=== PATIENT | female | born 1955 | race Hispanic/Latino ===

== ENCOUNTER 2017-06-12 14:14 | Emergency (ER) | payer OTHER ==
[2017-06-12 15:13] VITALS: BP 126/83; PULSE 61; TEMP 98.1; BMI 36.3
--- NOTE | 2017-06-12 15:24 | ED PDOC ---
Arrival/HPI - General Chief Complaint: Finger,Hand,&Wrist Time Seen by Provider: 06/12/17 15:01 Historian: Patient - History of Present Illness Narrative History of Present Illness (Text): 06/12/17 15:23 This 62 yo female presents to this ED c/o right 3rd finger tip pain x 2 days. She stated her finger was jammed with couch. Past Medical History - Tetanus Immunization Tetanus Immunization: Unknown - Reproductive Menopause: Yes - Cardiac Hx Hypertension: Yes - Pulmonary Hx Respiratory Disorders: Yes Hx Chronic Obstructive Pulmonary Disease (COPD): Yes Hx Emphysema: Yes - Neurological Hx Neurological Disorder: No - HEENT Hx HEENT Disorder: No - Renal Hx Renal Disorder: No - Endocrine/Metabolic Hx Endocrine Disorders: No Other/Comment: magdalena disease no longer on meds - Hematological/Oncological Hx Blood Disorders: Yes Hx Shingles: Yes - Integumentary Hx Dermatological Disorder: No - Musculoskeletal/Rheumatological Hx Arthritis: Yes - Gastrointestinal Hx Gastrointestinal Disorders: Yes (RECTAL BLEED) - Genitourinary/Gynecological Hx Genitourinary Disorders: No - Psychiatric Hx Psychophysiologic Disorder: Yes Hx Anxiety: Yes Hx Depression: Yes Hx Emotional Abuse: No Hx Panic Disorder: Yes Hx Physical Abuse: No Hx Substance Use: No - Surgical History Hx Hysterectomy: Yes Other/Comment: anal fistula repair - Anesthesia Hx Anesthesia: Yes Hx Anesthesia Reactions: No Hx Malignant Hyperthermia: No - Suicidal Assessment Feels Threatened In Home Enviroment: No Family/Social History Smoking Status: Former Smoker Hx Alcohol Use: No Hx Substance Use: No Hx Substance Use Treatment: No Allergies/Home Meds Allergies/Adverse Reactions: Allergies ciprofloxacin [From Cipro] Allergy (Verified 06/12/17 15:13) SWELLING ciprofloxacin HCl [From Cipro] Allergy (Verified 06/12/17 15:13) SWELLING Home Medications: Home Meds Medication Instructions Recorded Confirmed LORazepam [Ativan] 1 mg PO TID 04/24/16 06/12/17 Metoprolol Succinate 25 mg PO BID 04/24/16 06/12/17 Physical Exam Vital Signs Temp Pulse Resp BP Pulse Ox 06/12/17 15:14 98.1 F 61 16 126/83 97 06/12/17 15:12 98.1 F 61 16 126/83 97 Medical Decision Making ED Course and Treatment: 06/12/17 16:03 Th Re-evaluation Time: 16:03 Reassessment Condition: Re-examined, Improved - RAD Interpretation Narrative RAD Interpretations (Text): 06/12/17 16:03 finger x-rays x-rays Radiology Orders: 06/12/17 15:22 HAND RIGHT 3RD DIGIT (FINGER) [RAD] Stat Disposition/Present on Arrival - Present on Arrival Any Indicators Present on Arrival: No History of DVT/PE: No History of Uncontrolled Diabetes: No Urinary Catheter: No History of Decub. Ulcer: No History Surgical Site Infection Following: None - Disposition Have Diagnosis and Disposition been Completed?: Yes Diagnosis: Subungual hematoma of digit of hand Disposition: HOME/ ROUTINE Disposition Time: 16:03 Patient Plan: Discharge Condition: GOOD Discharge Instructions (ExitCare): Subungual Hematoma (ED) Additional Instructions: Call private doctor for follow up visit in 1-2 days. Take medication as instructed. return to emergency if symptoms worsen. clean wound with soap and water daily
[2017-06-12 16:08] VITALS: RESP 18; O2SAT 99
--- NOTE | 2017-06-12 16:32 | RAD ---
PROCEDURE: Right Hand Radiographs. HISTORY: pain COMPARISON: None. FINDINGS: BONES: Normal. No fracture. JOINTS: Normal. No osteoarthritic changes. SOFT TISSUES: Normal. OTHER FINDINGS: None. IMPRESSION: Normal right hand radiographs.
== END 2017-06-12 16:08 | disposition home or self-care (01) ==
LOC: ED 14:14
DX: S60.031A Contusion of right middle finger without damage to nail, initial encounter (principal); W23.0XXA Caught, crushed, jammed, or pinched between moving objects, initial encounter

== ENCOUNTER 2017-07-24 13:40 | Inpatient (IN) | payer MEDICAID ==
[2017-07-24 13:55] VITALS: BMI 36.6
--- NOTE | 2017-07-24 15:00 | ED PDOC ---
Arrival/HPI - General Historian: Patient - History of Present Illness Time/Duration: < week Quality: Aching Context: Home - General Chief Complaint: Trauma Time Seen by Provider: 07/24/17 14:45 - History of Present Illness Narrative History of Present Illness (Text): 07/24/17 14:45 This 62 yo female with pmh htn, COPD, thoracic aorta aneurysm, hypothyroidism, anxiety, presents to this ED c/o 2 episodes of syncope x 5 days. Patient stated that she was on standing position, when she found herself on the floor with a mild GRAYSON. Patient does not recall feeling dizzy prior syncope. Patient also had a second syncope x 2 days ago, again similar like 5 days ago without warning. Now, patient feels a mild GRAYSON, mid sternun chest pressure, RLQ abdominal pain, with back pain. Denies recent travel, recent procedure, leg swelling, vomiting, calf pain, diplopia, dysarthria, neck pain, or abnormal gait. (Mary Hayden) Past Medical History - Provider Review Nursing Documentation Reviewed: Yes - Infectious Disease Hx of Infectious Diseases: None - Tetanus Immunization Tetanus Immunization: Unknown - Cardiac Hx Cardiac Disorders: Yes Hx Hypertension: Yes Other/Comment: AAA - Pulmonary Hx Respiratory Disorders: Yes Hx Chronic Obstructive Pulmonary Disease (COPD): Yes Hx Emphysema: Yes - Neurological Hx Neurological Disorder: No - HEENT Hx HEENT Disorder: No - Renal Hx Renal Disorder: No - Endocrine/Metabolic Hx Endocrine Disorders: Yes Hx Hypothyroidism: Yes Other/Comment: magdalena disease no longer on meds - Hematological/Oncological Hx Blood Disorders: Yes Hx Shingles: Yes - Integumentary Hx Dermatological Disorder: No - Musculoskeletal/Rheumatological Hx Arthritis: Yes - Gastrointestinal Hx Gastrointestinal Disorders: Yes (RECTAL BLEED) - Genitourinary/Gynecological Hx Genitourinary Disorders: No - Psychiatric Hx Psychophysiologic Disorder: Yes Hx Anxiety: Yes Hx Depression: Yes Hx Emotional Abuse: No Hx Panic Disorder: Yes Hx Physical Abuse: No Hx Substance Use: No - Surgical History Hx Hysterectomy: Yes Other/Comment: anal fistula repair - Anesthesia Hx Anesthesia: Yes Hx Anesthesia Reactions: No Hx Malignant Hyperthermia: No - Suicidal Assessment Feels Threatened In Home Enviroment: No Family/Social History - Physician Review Nursing Documentation Reviewed: Yes Family/Social History: Other (non-contributory) Smoking Status: Former Smoker Hx Alcohol Use: No Hx Substance Use: No Hx Substance Use Treatment: No Allergies/Home Meds Allergies/Adverse Reactions: Allergies ciprofloxacin [From Cipro] Allergy (Verified 07/24/17 13:55) SWELLING ciprofloxacin HCl [From Cipro] Allergy (Verified 07/24/17 13:55) SWELLING Home Medications: Home Meds Medication Instructions Recorded Confirmed LORazepam [Ativan] 1 mg PO TID 04/24/16 07/24/17 Metoprolol Succinate 25 mg PO BID 04/24/16 07/24/17 Review of Systems - Review of Systems Constitutional: Normal. absent: Fatigue, Weight Change, Night Sweats Eyes: Normal ENT: Normal. absent: Sore Throat Respiratory: Normal. absent: SOB, Cough, Sputum, Wheezing Cardiovascular: Chest Pain, Syncope. absent: Palpitations, Edema, Calf Pain, SHEEHAN, Orthopnea Gastrointestinal: Abdominal Pain, Nausea. absent: Constipation, Diarrhea, Vomiting Genitourinary Female: Dysuria. absent: Frequency, Hematuria, Vaginal Bleeding, Vaginal Discharge Musculoskeletal: Back Pain. absent: Neck Pain, Joint Swelling, Myalgias Skin: Normal Neurological: Headache. absent: Dizziness, Focal Weakness, Gait Changes, Speech Changes, Facial Droop, Disequilibrium, Seizure Endocrine: Normal Hemo/Lymphatic: Normal Psychiatric: Normal Physical Exam Temperature: Afebrile Blood Pressure: Normal Pulse: Regular Respiratory Rate: Normal Appearance: Positive for: Well-Appearing, Non-Toxic, Comfortable Pain Distress: None Mental Status: Positive for: Alert and Oriented X 3 - Systems Exam Head: Present: Atraumatic, Normocephalic Pupils: Present: PERRL Extroacular Muscles: Present: EOMI Conjunctiva: Present: Normal Mouth: Present: Moist Mucous Membranes Neck: Present: Normal Range of Motion Respiratory/Chest: Present: Clear to Auscultation, Good Air Exchange. No: Respiratory Distress, Accessory Muscle Use Cardiovascular: Present: Regular Rate and Rhythm, Normal S1, S2. No: Murmurs Abdomen: Present: Normal Bowel Sounds. No: Tenderness, Distention, Peritoneal Signs, Rebound, Guarding Back: Present: Normal Inspection. No: CVA Tenderness, Midline Tenderness Upper Extremity: Present: Normal Inspection, Normal ROM, Neurovascularly Intact , Capillary Refill < 2s. No: Cyanosis, Edema Lower Extremity: Present: Normal Inspection, NORMAL PULSES, Normal ROM, Capillary Refill < 2 s. No: Edema Neurological: Present: GCS=15, CN II-XII Intact, Speech Normal, Motor Func Grossly Intact, Normal Sensory Function, Normal Cerebellar Funct, Gait Normal, Memory Normal Skin: Present: Warm, Dry, Normal Color. No: Rashes Psychiatric: Present: Alert, Oriented x 3, Normal Insight, Normal Concentration Vital Signs Temp Pulse Resp BP Pulse Ox 07/24/17 22:49 51 L 16 109/70 99 07/24/17 20:35 47 L 18 106/53 L 98 07/24/17 18:22 47 L 18 109/57 L 99 07/24/17 15:18 53 L 18 129/68 100 07/24/17 13:58 98.1 F 60 18 132/85 96 Medical Decision Making Re-evaluation Time: 20:15 Reassessment Condition: Re-examined, Improving,but remains with symptoms - Lab Interpretations I have reviewed the lab results: Yes Interpretation: No clinic. lab abnormalty - EKG Interpretation Interpreted by ED Physician: Yes (sinus bradycardia @ [address] changes) Comparison: No previous EKG avail. ED Course and Treatment: I was available for consultation during PA evaluation. The chart was reviewed by me, and I agree with disposition. The documented history was done by the physician weight inspector. The documented physical exam was done by the physician weight inspector. The documented procedures were done by the physician weight inspector. (Damon Ivey) 07/24/17 19:57 I speak with residential installer carmen who stated Dr. Alvarez is next. 07/24/17 19:[address] Alvarez who reviewed labs and c/o of syncope, abdominal pain He agrees with observation (Mary Hayden) - Lab Interpretations Lab Results: 07/24/17 15:30 07/24/17 15:30 Lab Results 07/24/17 15:30: Sodium 142, Chloride 106, Potassium 4.0, Carbon Dioxide 27, Anion Gap 13, BUN 11, Creatinine 0.8, Est GFR ( Amer) > 60, Est GFR (Non- Af Amer) > 60, Random Glucose 80, Calcium 9.6, Total Bilirubin 0.6, AST 22, ALT 22, Alkaline Phosphatase 52, Lactate Dehydrogenase 435, Total Creatine Kinase 90 , Troponin I < 0.01, NT-Pro-B Natriuret Pep 81.5, Total Protein 7.4, Albumin 4.2 , Globulin 3.2, Albumin/Globulin Ratio 1.3 07/24/17 15:30: pO2 42, VBG pH 7.30 L, VBG pCO2 59.0, VBG HCO3 29.0 H, VBG Total CO2 30.8 H, VBG O2 Sat (Calc) 84.2 H, VBG Base Excess 1.2, VBG Potassium 4.0, Sodium 140.0, Chloride 107.0, Glucose 82, Lactate 1.2, FiO2 21.0, Venous Blood Potassium 4.0 07/24/17 15:30: PT 10.7, INR 0.99, APTT 29.4 07/24/17 15:30: WBC 4.3 L, RBC 4.22, Hgb 13.4, Hct 38.3, MCV 90.8, MCH 31.8, MCHC 35.0, RDW 13.7, Plt Count 215, MPV 10.7, Gran % 59.2, Lymph % (Auto) 31.1, Lake % (Auto) 7.1 H, Eos % (Auto) 1.9, Baso % (Auto) 0.7, Gran # 2.52, Lymph # 1.3, Lake # 0.3, Eos # 0.1, Baso # 0.03 - RAD Interpretation Narrative RAD Interpretations (Text): 07/24/17 15:58 Accession No. : [id number] Patient Name / ID : GILBERTO ULLOA / [id number] Exam Date : 07/24/2017 15:02:31 ( Approved ) Study Comment : Sex / Age : F / 62Y Creator : Kaiden Salinas MD Dictator : Kaiden Salinas MD Production Zone Leader : Press Setter : Kaiden Salinas MD Approver2 : Report Date : 07/24/2017 15:29:33 My Comment : HISTORY: syncope COMPARISON: 03/03/2016 FINDINGS: LUNGS: No active pulmonary disease. PLEURA: No significant pleural effusion identified, no pneumothorax apparent. CARDIOVASCULAR: Normal. OSSEOUS STRUCTURES: No significant abnormalities. VISUALIZED UPPER ABDOMEN: Normal. OTHER FINDINGS: None. IMPRESSION: No active disease. 07/24/17 19:13 Accession No. : [id number] Patient Name / ID : GILBERTO ULLOA / [id number] Exam Date : 07/24/2017 18:35:59 ( Approved ) Study Comment : Sex / Age : F / 62Y Creator : Aura Gross MD Dictator : Production Zone Leader : Press Setter : Aura Gross MD Approver2 : Report Date : 07/24/2017 18:56:12 My Comment : PROCEDURE: CT HEAD WITHOUT CONTRAST. HISTORY: grayson COMPARISON: Noncontrast head CT performed 11/09/16 TECHNIQUE: Axial computed tomography images were obtained through the head/brain without intravenous contrast. Radiation dose: Total exam DLP = 774.23 mGy-cm. This CT exam was performed using one or more of the following dose reduction techniques: Automated exposure control, adjustment of the mA and/or kV according to patient size, and/or use of iterative reconstruction technique. FINDINGS: HEMORRHAGE: No intracranial hemorrhage. BRAIN: No mass effect or edema. The renae-white matter differentiation appears intact. Please note that MRI with diffusion imaging is more sensitive in the detection of acute ischemic event. VENTRICLES: No hydrocephalus. CALVARIUM: Unremarkable. PARANASAL SINUSES: Unremarkable as visualized. No significant inflammatory changes. MASTOID AIR CELLS: Unremarkable as visualized. No inflammatory changes. OTHER FINDINGS: None. IMPRESSION: No acute intracranial pathology identified. 07/24/17 23:02 [facility] Division of Radiology [address] [place] [address] Tel. no. Patient Name: LAILA MACIAS Pt. Address: [address] [place] [address] Rec #: [id number] [place] [address]: Mary Hayden PA-C Pt Order Location: [facility] : 1955 Female Age: 62 Order #: [id number] Reason for exam: RLQ abd. pain, chest and back pain Hx. aneurysm CT Scan ANGIOGRAPHY DISECTION PROTOCOL Exam Date: 07/24/17 This imaging exam was performed at [facility] EXAM: CT Angiography Chest Without and With Intravenous Contrast CLINICAL HISTORY: 62 years old, female; Pain; Abdominal pain and other: Rlq abd. Pain, chest and back pain HX. Aneurysm TECHNIQUE: Axial computed tomographic angiography images of the chest without and with intravenous contrast using pulmonary embolism protocol. All CT scans at this facility use one or more dose reduction techniques, viz.: automated exposure control; ma/kV adjustment per patient size (including targeted exams where dose is matched to indication; i.e. head); or iterative reconstruction technique. MIP reconstructed images were created and reviewed. Coronal and sagittal reformatted images were created and reviewed. CONTRAST: 150 mL of [id number] administered intravenously. COMPARISON: Prior images are not available for review. Correlation is made with a report dated 11/10/16 FINDINGS: Heart, aorta and Pulmonary arteries: Heart size is normal. There is no pericardial effusion. Ascending aorta is mildly dilated, 4 cm in diameter. There is tapering at the arch. There is perfusion of the arch vessels. There is no dissection. There are calcifications in the arch. There are no pulmonary emboli. Lungs and pleural spaces: Trachea and main bronchi are patent.There is no pneumothorax. There is no focal consolidation there is minimal dependent atelectasis. There is minimal scarring at the lung bases. There are no effusions. Mediastinum: Esophagus is unremarkable. There are shotty mediastinal nodes. There is no hilar adenopathy. Thyroid: Thyroid is unremarkable Bones/joints: There are degenerative changes in the osseus structures. Soft tissues: unremarkable Upper abdomen: Refer to following report for abdominal findings IMPRESSION: Mild dilatation of the ascending aorta, 4 cm maximal diameter, no dissection or pulmonary embolus, no focal pneumonia EXAM: CT Angiography Abdomen and Pelvis Without and With Intravenous Contrast EXAM DATE/TIME: 07/24/2017 2:46 PM CLINICAL HISTORY: 62 years old, female; Pain; Abdominal pain and other: Rlq abd. Pain, chest and back pain HX. Aneurysm TECHNIQUE: Axial computed tomographic angiography images of the abdomen and pelvis without and with intravenous contrast. All CT scans at this facility use one or more dose reduction techniques, viz.: automated exposure control; ma/kV adjustment per patient size (including targeted exams where dose is matched to indication; i.e. head); or iterative reconstruction technique. MIP reconstructed images were created and reviewed. Coronal and sagittal reformatted images were created and reviewed. CONTRAST: 150 mL of administered intravenously. COMPARISON: There are no prior studies for comparison. FINDINGS: Lower thorax: Refer to prior report for chest findings VASCULATURE: Aorta: Abdominal aorta is normal in course and caliber. There is perfusion of all major abdominal aortic branches. There is perfusion of the iliac arteries. There are atherosclerotic calcifications in the distal aorta and iliacs. Celiac trunk and mesenteric arteries: see above . Renal arteries: see above Iliac arteries: See above. ABDOMEN: Liver: unremarkable Gallbladder and bile ducts: unremarkable Pancreas: unremarkable Spleen: unremarkable Adrenals: unremarkable Kidneys and ureters: unremarkable Stomach and bowel: Stomach is almost empty. Rotation is normal. Small bowel is mildly distended with fluid and air. There is no obstruction. Terminal ileum is unremarkable. Visualized portion of the appendix is unremarkable.Colon is incompletely distended which limits evaluation. Appendix: See above PELVIS: Bladder: unremarkable Reproductive: Uterus is absent. There are no adnexal masses. ABDOMEN and PELVIS: Intraperitoneal space: There is no significant fluid.There is no free air. Bones/joints: There are degenerative changes in the spine. Disc space narrowing is greatest at L5/S1. Soft tissues: unremarkable Lymph nodes: There is no pathologic adenopathy. Other findings: There are calcified phleboliths. IMPRESSION: No abdominal aortic aneurysm or dissection; no acute solid visceral or bowel abnormality; degenerative osseous change Dictated By: Veronica Garcia MD, MD Dictated Date/Time: 07/24/172050 Signed By: Veronica Garcia MD Date Signed: 2050 Transcribed By: ROSA Transcribe Date/Time : 07/24/172050 (Mary Hayden) Radiology Orders: 07/24/17 14:46 ANGIOGRAPHY DISECTION PROTOCOL [CT] Stat CHEST PORTABLE [RAD] Stat 07/24/17 14:50 HEAD W/O CONTRAST [CT] Stat - Medication Orders Current Medication Orders: Acetaminophen (Tylenol 325mg Tab) 650 mg PO Q6H PRN PRN Reason: Pain, moderate (4-7) Cyclobenzaprine HCl (Flexeril) 5 mg PO Q8H [place]ILL Oxycodone/Acetaminophen (Percocet 2.5/325 Mg Tab) 1 tab PO Q6H PRN PRN Reason: Pain, severe (8-10) Discontinued Medications Iohexol (Omnipaque 350 150 Ml) Confirm Administered Dose 150 ml .ROUTE .STK-MED ONE Stop: 07/24/17 18:37 Ondansetron HCl (Zofran Inj) 4 mg IVP STAT STA Stop: 07/24/17 14:52 Last Admin: 07/24/17 18:17 Dose: 4 mg Disposition/Present on Arrival - Present on Arrival Any Indicators Present on Arrival: No History of DVT/PE: No History of Uncontrolled Diabetes: No Urinary Catheter: No History of Decub. Ulcer: No History Surgical Site Infection Following: None - Disposition Have Diagnosis and Disposition been Completed?: Yes Disposition Time: 20:16 Patient Plan: Admission - Disposition Diagnosis: Syncope and collapse Disposition: HOSPITALIZED Patient Problems: Current Active Problems Problem Status Onset Syncope and collapse Acute Condition: STABLE
--- NOTE | 2017-07-24 15:31 | RAD ---
HISTORY: syncope COMPARISON: 03/03/2016 FINDINGS: LUNGS: No active pulmonary disease. PLEURA: No significant pleural effusion identified, no pneumothorax apparent. CARDIOVASCULAR: Normal. OSSEOUS STRUCTURES: No significant abnormalities. VISUALIZED UPPER ABDOMEN: Normal. OTHER FINDINGS: None. IMPRESSION: No active disease.
[2017-07-24 16:04] LABS: BASO # 0.03 K/mm3 (0.0-2.0); BASO % 0.7 % (0.0-3.0); EOS # 0.1 (0.0-0.7); EOS % 1.9 % (1.5-5.0); GRAN # 2.52 (1.4-6.5); GRAN % 59.2 % (50.0-68.0); HEMATOCRIT 38.3 % (36.0-48.0); LYMPH # 1.3 (1.2-3.4); LYMPH % 31.1 % (22.0-35.0); MEAN CELL VOLUME 90.8 fl (80.0-105.0); MEAN CORPUSCULAR HEMOGLOBIN 31.8 pg (25.0-35.0); MEAN PLATELET VOLUME 10.7 fl (7.0-11.0); MONO # 0.3 (0.1-0.6); MONO % 7.1 % (1.0-6.0); RED CELL DISTRIBUTION WIDTH 13.7 % (11.5-14.5); VENOUS BLOOD GAS BASE EXCESS 1.2 mmol/L (0.0-2.0); WHITE BLOOD COUNT 4.3 10^3/ul (4.5-11.0)
[2017-07-24 16:14] LABS: ALB/GLOB RATIO 1.3 (1.1-1.8); ALKALINE PHOSPHATASE 52 U/L (38-126); ALT/SGPT 22 U/L (7-56); AST/SGOT 22 U/L (14-36); BILIRUBIN,TOTAL 0.6 mg/dL (0.2-1.3); BLOOD UREA NITROGEN 11 mg/dL (7-21); CALCIUM 9.6 mg/dL (8.4-10.5); CARBON DIOXIDE 27 mmol/L (21-33); CHLORIDE 106 mmol/L (98-107); GFR AFRICAN-AMERICAN > 60; GLUCOSE,RANDOM 80 mg/dL (70-110); SODIUM 142 mmol/L (132-148); TOTAL PROTEIN 7.4 g/dL (5.8-8.3)
[2017-07-24 16:19] LABS: INR 0.99 (0.93-1.08); PARTIAL THROMBOPLASTIN TIME 29.4 Seconds (23.7-30.8)
[2017-07-24 16:33] LABS: TROPONIN I < 0.01 ng/mL
--- NOTE | 2017-07-24 18:57 | CT ---
PROCEDURE: CT HEAD WITHOUT CONTRAST. HISTORY: henderson COMPARISON: Noncontrast head CT performed 11/09/16 TECHNIQUE: Axial computed tomography images were obtained through the head/brain without intravenous contrast. Radiation dose: Total exam DLP = 774.23 mGy-cm. This CT exam was performed using one or more of the following dose reduction techniques: Automated exposure control, adjustment of the mA and/or kV according to patient size, and/or use of iterative reconstruction technique. FINDINGS: HEMORRHAGE: No intracranial hemorrhage. BRAIN: No mass effect or edema. The renae-white matter differentiation appears intact. Please note that MRI with diffusion imaging is more sensitive in the detection of acute ischemic event. VENTRICLES: No hydrocephalus. CALVARIUM: Unremarkable. PARANASAL SINUSES: Unremarkable as visualized. No significant inflammatory changes. MASTOID AIR CELLS: Unremarkable as visualized. No inflammatory changes. OTHER FINDINGS: None. IMPRESSION: No acute intracranial pathology identified.
--- NOTE | 2017-07-24 20:52 | CT ---
EXAM: CT Angiography Chest Without and With Intravenous Contrast CLINICAL HISTORY: 62 years old, female; Pain; Abdominal pain and other: Rlq abd. Pain, chest and back pain HX. Aneurysm TECHNIQUE: Axial computed tomographic angiography images of the chest without and with intravenous contrast using pulmonary embolism protocol. All CT scans at this facility use one or more dose reduction techniques, viz.: automated exposure control; ma/kV adjustment per patient size (including targeted exams where dose is matched to indication; i.e. head); or iterative reconstruction technique. MIP reconstructed images were created and reviewed. Coronal and sagittal reformatted images were created and reviewed. CONTRAST: 150 mL of [id number] administered intravenously. COMPARISON: Prior images are not available for review. Correlation is made with a report dated 11/10/16 FINDINGS: Heart, aorta and Pulmonary arteries: Heart size is normal. There is no pericardial effusion. Ascending aorta is mildly dilated, 4 cm in diameter. There is tapering at the arch. There is perfusion of the arch vessels. There is no dissection. There are calcifications in the arch. There are no pulmonary emboli. Lungs and pleural spaces: Trachea and main bronchi are patent.There is no pneumothorax. There is no focal consolidation there is minimal dependent atelectasis. There is minimal scarring at the lung bases. There are no effusions. Mediastinum: Esophagus is unremarkable. There are shotty mediastinal nodes. There is no hilar adenopathy. Thyroid: Thyroid is unremarkable Bones/joints: There are degenerative changes in the osseus structures. Soft tissues: unremarkable Upper abdomen: Refer to following report for abdominal findings IMPRESSION: Mild dilatation of the ascending aorta, 4 cm maximal diameter, no dissection or pulmonary embolus, no focal pneumonia EXAM: CT Angiography Abdomen and Pelvis Without and With Intravenous Contrast EXAM DATE/TIME: 07/24/2017 2:46 PM CLINICAL HISTORY: 62 years old, female; Pain; Abdominal pain and other: Rlq abd. Pain, chest and back pain HX. Aneurysm TECHNIQUE: Axial computed tomographic angiography images of the abdomen and pelvis without and with intravenous contrast. All CT scans at this facility use one or more dose reduction techniques, viz.: automated exposure control; ma/kV adjustment per patient size (including targeted exams where dose is matched to indication; i.e. head); or iterative reconstruction technique. MIP reconstructed images were created and reviewed. Coronal and sagittal reformatted images were created and reviewed. CONTRAST: 150 mL of [id number] administered intravenously. COMPARISON: There are no prior studies for comparison. FINDINGS: Lower thorax: Refer to prior report for chest findings VASCULATURE: Aorta: Abdominal aorta is normal in course and caliber. There is perfusion of all major abdominal aortic branches. There is perfusion of the iliac arteries. There are atherosclerotic calcifications in the distal aorta and iliacs. Celiac trunk and mesenteric arteries: see above . Renal arteries: see above Iliac arteries: See above. ABDOMEN: Liver: unremarkable Gallbladder and bile ducts: unremarkable Pancreas: unremarkable Spleen: unremarkable Adrenals: unremarkable Kidneys and ureters: unremarkable Stomach and bowel: Stomach is almost empty. Rotation is normal. Small bowel is mildly distended with fluid and air. There is no obstruction. Terminal ileum is unremarkable. Visualized portion of the appendix is unremarkable.Colon is incompletely distended which limits evaluation. Appendix: See above PELVIS: Bladder: unremarkable Reproductive: Uterus is absent. There are no adnexal masses. ABDOMEN and PELVIS: Intraperitoneal space: There is no significant fluid.There is no free air. Bones/joints: There are degenerative changes in the spine. Disc space narrowing is greatest at L5/S1. Soft tissues: unremarkable Lymph nodes: There is no pathologic adenopathy. Other findings: There are calcified phleboliths. IMPRESSION: No abdominal aortic aneurysm or dissection; no acute solid visceral or bowel abnormality; degenerative osseous change
[2017-07-24] MEDS ORDERED: Oxycodone/Acetaminophen 2.5/325 mg Tab PO PRN (22:36)
--- NOTE | 2017-07-24 22:52 | CARD ---
APPROVED REPORT EKG Measurement Heart [id number] CT 160P51 [id number] <Conclusion> Sinus bradycardia with sinus arrhythmia Otherwise normal ECG
[2017-07-24 23:31] LABS: URINE BILIRUBIN NEGATIVE (NEGATIVE); URINE BLOOD NEGATIVE (NEGATIVE); URINE GLUCOSE (UA) NEGATIVE (NEGATIVE); URINE KETONE NEGATIVE (NEGATIVE); URINE LEUKOCYTE ESTERASE NEGATIVE Leu/uL (NEGATIVE); URINE PROTEIN TRACE mg/dL (<30 mg/dL); URINE UROBILINOGEN 0.2 E.U./dL (<1 E.U./dL)
[2017-07-24 23:35] LABS: URINE APPEARANCE CLEAR (CLEAR); URINE COLOR YELLOW (YELLOW)
[2017-07-24 23:54] LABS: URINE RBC 0 - 2 /hpf (0-2); URINE WBC 0 - 2 /hpf (0-6)
[2017-07-25 01:14] VITALS: RESP 20
--- NOTE | 2017-07-25 02:37 | CP.PCM.HP ---
<OTONIELNATALIE - Last Filed: 07/25/17 02:33> History of Present Illness - History of Present Illness History of Present Illness: Natalie Zepeda, PGY1, H&P for Dr. Alvarez: CC: Syncope x 2 episodes HPI: 62F with PMH peripheral neuropathy, ascending aortic aneursym, hasthimoto' s thryoiditis, tachy maureen arrhythmia, presents for syncopal episodes x2. Pt had first episode 6 days ago while she was standing on the kitchen doing dishes , and suddenly collapsed to ground. She denies any dizziness, cp, palpitations, weakness, diaphoresis, sob prior to the episode. Denies LOC, pt immediately got up, denies confusion/disorientation. Pt fell on her back and elbows, was in pain but was able to ambulate. The next episode of syncope occurred 4 days after, while pt was in the park and suddenly felt papitations, and she syncopized to the ground. However, pt again hit her back, and since the past few days, pt has felt worsening back pain, leading her to come to ED. Pt denies any cp, sob, weakness, weight changes, heat/cold intolerance, f/c/n/v, constipation, diarrhea. Pt does complain of some + ears buzzing, right eye floaters (that have returned - her previous admission few months ago was for right vitreous detachment). In ED, pt afebrile, nrml VS, trop negx1, CT head/ chest/abd/pelvis neg. Prev Hospi: 10/2016 at [facility] [place]reous detachment, f/u with oupt opthalmologist for 6 months PMH: ascending aortic aneurysm, Htn, magdalena's thyroiditis, COPD, tachy-maureen arrhythmia, dyslipidemia, panic attack, peripheral neuropathy. PSH: total hysterectomy, anal fistula repair 2016. FMH: sister from [place]. Mom at age of 78, had alzheimer and melanoma. Dad at age of 94, from renal failure. Social: former pack a day smoker, quit 2 yrs ago, smoked for 24 years. denies alcohol or illicit drug use. Allergy: cipro Home meds: please obtain med rec from pharmacy Present on Admission - Present on Admission Any Indicators Present on Admission: No History of DVT/PE: No History of Uncontrolled Diabetes: No Urinary Catheter: No Decubitus Ulcer Present: No History Surgical Site Infection Following: None Review of Systems - Review of Systems All systems: reviewed and no additional remarkable complaints except Review of Systems: as per HPI Past Patient History - Infectious Disease Hx of Infectious Diseases: None - Tetanus Immunizations Tetanus Immunization: Unknown - Past Medical History & Family History Past Medical History?: Yes - Past Social History Smoking Status: Former Smoker - CARDIAC Hx Cardiac Disorders: Yes Hx Hypertension: Yes Other/Comment: AAA - PULMONARY Hx Respiratory Disorders: Yes Hx Chronic Obstructive Pulmonary Disease (COPD): Yes Hx Emphysema: Yes - NEUROLOGICAL Hx Neurological Disorder: No - HEENT Hx HEENT Problems: No - RENAL Hx Chronic Kidney Disease: No - ENDOCRINE/METABOLIC Hx Endocrine Disorders: Yes Hx Hypothyroidism: Yes Other/Comment: magdalena disease no longer on meds - HEMATOLOGICAL/ONCOLOGICAL Hx Blood Disorders: Yes Hx Shingles: Yes - INTEGUMENTARY Hx Dermatological Problems: No - MUSCULOSKELETAL/RHEUMATOLOGICAL Hx Arthritis: Yes Hx Falls: Yes (Fell 2x at home.) - GASTROINTESTINAL Hx Gastrointestinal Disorders: Yes (RECTAL BLEED) - GENITOURINARY/GYNECOLOGICAL Hx Genitourinary Disorders: No - PSYCHIATRIC Hx Psychophysiologic Disorder: Yes Hx Anxiety: Yes Hx Depression: Yes Hx Emotional Abuse: No Hx Panic Symptoms: Yes Hx Physical Abuse: No Hx Substance Use: No - SURGICAL HISTORY Hx Hysterectomy: Yes Other/Comment: anal fistula repair - ANESTHESIA Hx Anesthesia: Yes Hx Anesthesia Reactions: No Hx Malignant Hyperthermia: No Meds Allergies/Adverse Reactions: Allergies Allergy/AdvReac Type Severity Reaction Status Date / Time ciprofloxacin [From Cipro] Allergy SWELLING Verified 07/24/17 13:55 ciprofloxacin HCl Allergy SWELLING Verified 07/24/17 13:55 [From Cipro] Physical Exam - Constitutional Appears: Non-toxic, In Acute Distress, Younger Than Stated Age - Head Exam Head Exam: ATRAUMATIC, NORMOCEPHALIC - Eye Exam Eye Exam: Normal appearance, PERRL. absent: Conjunctival injection, Scleral icterus Pupil Exam: NORMAL ACCOMODATION, PERRL. absent: Irregular, Unequal - ENT Exam ENT Exam: Mucous Membranes Moist - Neck Exam Neck exam: Negative for: Lymphadenopathy, Thyromegaly - Respiratory Exam Respiratory Exam: Clear to Auscultation Bilateral, NORMAL BREATHING PATTERN. absent: Accessory Muscle Use, Decreased Breath Sounds, Rales, Rhonchi, Wheezes - Cardiovascular Exam Cardiovascular Exam: Bradycardia, REGULAR RHYTHM, +S1, +S2. absent: Systolic Murmur - GI/Abdominal Exam GI & Abdominal Exam: Normal Bowel Sounds, Soft. absent: Guarding, Rebound, Tenderness - Extremities Exam Extremities exam: Positive for: normal inspection, pedal pulses present. Negative for: calf tenderness, pedal edema - Back Exam Back exam: absent: CVA tenderness (L), CVA tenderness (R) - Neurological Exam Neurological exam: Alert, CN II-XII Intact, Normal Gait, Oriented x3, Reflexes Normal - Psychiatric Exam Psychiatric exam: Normal Mood - Skin Skin Exam: Dry, Warm Results - Vital Signs Recent Vital Signs: Last Vital Signs Temp 98.3 F 07/25/17 00:07 Pulse 56 L 07/25/17 00:07 Resp 20 07/25/17 00:07 BP 109/64 07/25/17 00:07 Pulse Ox 99 07/24/17 22:49 - Labs Result Diagrams: 07/24/17 15:30 07/24/17 15:30 Labs: Laboratory Results - last 24 hr 07/24/17 23:06 Urine Color Yellow Urine Appearance Clear Urine pH 6.0 Ur Specific [place] >= 1.030 Urine Protein Trace H Urine Glucose (UA) Negative Urine Ketones Negative Urine Blood Negative Urine Nitrate Negative Urine Bilirubin Negative Urine Urobilinogen 0.2 Ur Leukocyte Esterase Negative Urine RBC 0 - 2 Urine WBC 0 - 2 Ur Epithelial Cells 1 - 3 Assessment & Plan - Assessment and Plan (Free Text) Assessment: 62F with PMH ascending aortic aneurysm, Magdalena's thyroiditis, HTN, tachy maureen arrhythmia, HLD, peripheral neuropathy, presents for syncope, fall. Plan: Syncopal episodes - 2/2 mechanical vs cardiac vs orthostatic vs hypoglycemia vs thyroid vs BPPV - Mondamin hallpike negative on exam - Neuro check q 4h - Fall precautions - BS 80 in ED, f/u tsh. hgb A1c - F/u Cardio, neuro C/s. On Tele monitoring, EKG no abnormalities noted. Consider carotid US. - Head CT neg. CT chest/abd pelvis showed no abd aortic aneurysm or dissection. No bowel abn. degenerate osseus changes. - Pt complains of seeing floater and yellow spots thru right eye. Pt had previous such episodes, followed up by opthalmologist the previous admission and found to be right vitreous detachment. F/u Optho consult, recs. - f/u orthostatic VS Hx of HTN: - On home med metoprolol 25 mg BID, will cont here, hold if SBP<120 Back pain: - CT chest abd pelvis showed no acute fractures - No spinal/hip tenderness on exam - Consider spine x rays - Flexeril, prn percocet for severe pain and prn tylenol for moderate pain Dysuria: - F/u UA and Urine culture Please obtain med rec from pharmacy in AM. Discussed with Dr Alvarez. Cecilia Zepeda, PGY1 - Date & Time Date: 07/25/17 Time: 02:51 <Arya Alvarez - Last Filed: 07/25/17 08:39> Results - Vital Signs Recent Vital Signs: Last Vital Signs Temp 97.5 F L 07/25/17 08:01 Pulse 56 L 07/25/17 08:01 Resp 20 07/25/17 08:01 BP 104/54 L 07/25/17 08:01 Pulse Ox 96 07/25/17 08:01 - Labs Result Diagrams: 07/24/17 15:30 07/24/17 15:30 Labs: Laboratory Results - last 24 hr 07/24/17 23:06 Urine Color Yellow Urine Appearance Clear Urine pH 6.0 Ur Specific [place] >= 1.030 Urine Protein Trace H Urine Glucose (UA) Negative Urine Ketones Negative Urine Blood Negative Urine Nitrate Negative Urine Bilirubin Negative Urine Urobilinogen 0.2 Ur Leukocyte Esterase Negative Urine RBC 0 - 2 Urine WBC 0 - 2 Ur Epithelial Cells 1 - 3 Attending/Attestation - Attestation I have personally seen and examined this patient.: Yes I have fully participated in the care of the patient.: Yes I have reviewed all pertinent clinical information: Yes Notes (Text): 07/25/17 08:37 Patient was seen when she was in bed # 367-38. Agree with history ,physical examination, assessment and plan.
[2017-07-25 09:04] LABS: HEMATOCRIT 37.9 % (36.0-48.0); MEAN CELL VOLUME 90.2 fl (80.0-105.0); MEAN CORPUSCULAR HEMOGLOBIN 31.4 pg (25.0-35.0); MEAN CORPUSCULAR HGB CONC 34.8 g/dl (31.0-37.0); MEAN PLATELET VOLUME 10.3 fl (7.0-11.0); RED CELL DISTRIBUTION WIDTH 13.8 % (11.5-14.5); WHITE BLOOD COUNT 4.3 10^3/ul (4.5-11.0)
[2017-07-25 09:15] LABS: BLOOD UREA NITROGEN 12 mg/dL (7-21); CALCIUM 9.3 mg/dL (8.4-10.5); CARBON DIOXIDE 25 mmol/L (21-33); CHLORIDE 107 mmol/L (98-107); GFR AFRICAN-AMERICAN > 60; GLUCOSE,RANDOM 89 mg/dL (70-110); POTASSIUM 3.9 mmol/L (3.6-5.0); SODIUM 141 mmol/L (132-148)
[2017-07-25 09:28] LABS: TROPONIN I < 0.01 ng/mL
[2017-07-25] MEDS ORDERED: Metoprolol Succinate 25 mg XL Tab PO SCH (10:00)
--- NOTE | 2017-07-25 11:32 | MRI ---
PROCEDURE: MRI BRAIN WITHOUT CONTRAST HISTORY: syncope COMPARISON: 11/10/2016 MRI of the brain TECHNIQUE: Multiplanar, multisequence MR images of the brain were obtained without intravenous contrast enhancement. FINDINGS: HEMORRHAGE: None DWI: No evidence of an acute or early subacute infarction. BRAIN PARENCHYMA: No mass effect or edema. Minimal microvascular changes are seen in the periventricular white matter unchanged from prior exam. VENTRICLES: Unremarkable. No hydrocephalus. CRANIUM: Unremarkable. ORBITS: Grossly unremarkable. PARANASAL SINUSES/MASTOIDS: Clear VASCULAR SYSTEM: Skull base flow voids intact. OTHER FINDINGS: None. IMPRESSION: No acute intracranial findings
--- NOTE | 2017-07-25 14:00 | CON ---
DATE: NEUROLOGY CONSULTATION REPORT REASON FOR CONSULTATION: Episode of passing out. HISTORY OF PRESENTING ILLNESS: The patient is a 62-year-old female who was admitted after she had two episodes of passing out. The patient had an episode of passing out about six days ago and then another episode yesterday. The first episode was about six days ago when she was standing in the kitchen and doing her dishes and she felt some strain sensation on her chest and after that she passed out. She was unconscious briefly. Did not have any urinary incontinence or tongue biting. Did not have any focal weakness when she woke up. Then again about two to three days ago, she had another episode during, which time she was in the park and suddenly felt some palpitation and passed out. She did not have any chest pain. Focal weakness in arms or legs. Denies any other complaints. At the movement, she feels fine. REVIEW OF SYSTEMS: She denies any headache, dizziness, or current chest pain. Denies any shortness of breath or abdominal pain, constipation, diarrhea, dysuria, polyuria, cough, or sputum production. PAST MEDICAL HISTORY: Includes aortic aneurysm, hypertension, Se's thyroiditis, COPD, tachybrady arrhythmias, peripheral neuropathy, and panic attack. MEDICATIONS: At home include metoprolol and Ativan. ALLERGIES: SHE HAS ALLERGIES TO CIPROFLOXACIN. SOCIAL HISTORY: Denies smoking, alcohol or drugs. FAMILY HISTORY: Reviewed and noncontributory to the case. PHYSICAL EXAMINATION GENERAL: The patient is in middle-aged female, sitting in no acute distress. VITAL SIGNS: Her blood pressure is 99/64, heart rate is 57 per minute, breathing at the rate of 16 per minute and temperature is 97.5 degree Fahrenheit. HEENT: Normocephalic and atraumatic. NECK: Supple. There are no carotid bruits. LUNGS: Clear. CARDIOVASCULAR : S1 and S2 audible. No murmurs. ABDOMEN: Soft and nontender with bowel sounds present. NEUROLOGY: Mental Status: The patient is awake, alert, oriented to time, place, and person. Speech is fluent. Naming and repetition is normal. Memory and cognition are intact. Cranial Nerve Examination: Pupils are 4 mm bilaterally reactive to light. Visual negro are full. Extraocular movements are intact. There is no facial asymmetry. Palate is upgoing bilaterally. Tongue is midline. Motor Examination: Tone is normal. Power is 5/5 bilaterally. Lower extremity reflexes 1+ symmetrical. Planters are downgoing bilaterally. Cerebellar examination: [id number] showed no dysmetria. Gait is narrow based. Romberg is negative. LABORATORY DATA: Reviewed and shows WBC of 4.3, hemoglobin of 13.2, hematocrit of 37.9, and platelets of 194. Sodium is 141, potassium is 3.9, chloride is 107, carbon dioxide is 25, BUN of 12, creatinine of 0.8, and glucose of 89. She had a CT scan of the head done, which shows no intracranial pathology. IMPRESSION: Syncope x2, rule out any cardiac arrhythmias versus seizures. RECOMMENDATIONS: 1. The patient to have MRI of the brain without contrast. 2. The patient also to have an electroencephalogram. 3. The patient to have cardiac monitoring to rule out any cardiac arrhythmias. 4. I agree with obtaining carotid Doppler studies. 5. Please continue other treatment and supportive care. Thank you for the opportunity to participate in the care of this patient. Laquita Carbone MD
--- NOTE | 2017-07-25 14:24 | US ---
PROCEDURE: Bilateral carotid artery duplex ultrasound HISTORY: Carotid stenosis syncope PHYSICIAN(S): Yordy Lind MD. TECHNIQUE: Duplex sonography and color-flow Doppler were used to evaluate the carotid bifurcations and limited segments of the vertebral arteries bilaterally. FINDINGS: There is mild smooth hypoechoic plaque noted at the carotid bifurcations bilaterally. The peak systolic velocity in the proximal right internal carotid artery is 81 cm/sec. This corresponds to a 20 to 39% proximal right ICA stenosis. Normal systolic velocities are noted in the proximal right external carotid artery. There is antegrade flow in the right vertebral artery. The peak systolic velocity in the proximal left internal carotid artery is 89 cm/sec. This corresponds to a 20 to 39% proximal left ICA stenosis. Normal systolic velocities are noted in the proximal left external carotid artery. There is antegrade flow in the left vertebral artery. IMPRESSION: 1. Bilateral 20-39% proximal ICA stenoses. 2. Antegrade flow in both vertebral arteries.
[2017-07-25 16:45] LABS: TROPONIN I < 0.01 ng/mL
--- NOTE | 2017-07-26 01:01 | CON ---
CARDIOLOGY CONSULT REASON FOR CONSULTATION: Fall. HISTORY OF PRESENT ILLNESS: The patient is a 62 years old [place] female who has a history of chronic obstructive lung disease, hypothyroidism, thoracic aortic aneurysm and anxiety. The patient came because of 2 episodes of falling at home while in standing position and the patient hit her back of head against the floor. The patient denies feeling dizzy and does not recall experiencing palpitation and denies any loss of consciousness prior or during the fall. The patient denies any tongue biting or urinary incontinence and is unaware of any history of seizure activity. SOCIAL HISTORY: The patient is a former smoker. MEDICATIONS: Flexeril 5 mg q. 8 hours, Percocet 1 tablet q. 6 hours p.r.n. and Toprol-XL 25 mg twice a day. PHYSICAL EXAMINATION: GENERAL: The patient is a middle-aged female who does not appear to be in acute distress. VITAL SIGNS: Blood pressure 104/64, heart rate 66, temperature 99.5 and respirations 20. HEENT: Normocephalic. CHEST: Clear. HEART: S1 and S2 regular. EXTREMITIES: No edema. No calf tenderness. LABORATORY AND DIAGNOSTIC DATA: CBC; WBC 4.3, hemoglobin 15.2, hematocrit 37.9, platelet count 194,000. SMA-7 is within normal limit. Two sets of troponins are negative. PT and PTT are within normal limits. Brain MRI, no acute intracranial findings. CT angio with dissection protocol revealed no abdominal aortic aneurysm or dissection. Mild dilatation of the ascending aorta 4 cm maximum diameter, no dissection or pulmonary embolus. Carotid Doppler was performed, but the report is still pending. Head CT scan without contrast, no acute intracranial findings. Chest x-ray; no active disease. EKG revealed sinus bradycardia at rate of 51. ASSESSMENT: 1. Recurrent falls. 2. Sinus bradycardia. 3. Rule out cervical radiculopathy. 4. History of chronic obstructive pulmonary disease. 5. Mild dilated aortic root. RECOMMENDATIONS: Discontinue Toprol-XL. Obtain TSH level. C-spine x-ray echo if none is recently done. Junior Ray MD [facility] # [id number]
[2017-07-26] MEDS ORDERED: Levothyroxine 150 MCG TAB PO SCH (06:00)
[2017-07-26 07:01] LABS: CHOLESTEROL 197 mg/dL (130-200)
[2017-07-26] MEDS ORDERED: Oxycodone/Acetaminophen 5/325 mg Tab PO PRN (10:51)
[2017-07-26] MEDS ORDERED: Levothyroxine 75 MCG TAB PO SCH (11:59)
--- NOTE | 2017-07-26 13:06 | RAD ---
PROCEDURE: Cervical Spine Radiographs. HISTORY: Pain. COMPARISON: None. FINDINGS: BONES: Alignment maintained. No fracture. Dens Intact. DISC SPACES: There is mild disc space narrowing and degeneration at multiple levels SOFT TISSUES: Normal. No prevertebral soft tissue swelling. OTHER FINDINGS: None. IMPRESSION: No acute findings. Mild degenerative changes
--- NOTE | 2017-07-26 13:27 | PN ---
SUBJECTIVE: The patient denies any dizziness or retrosternal chest pain. PHYSICAL EXAMINATION VITAL SIGNS: Blood pressure 106/57, heart rate 66, temperature of 97.5 and respirations 20. HEENT: Normocephalic. CHEST: Clear. HEART: S1 and S2 regular. ABDOMEN: Soft. EXTREMITIES: No edema. LABORATORY DATA: Today's LDL cholesterol is 131 which is elevated. TSH level is elevated at 10.3. ASSESSMENT: 1. Recurrent falls. 2. A 4-cm dilated ascending aorta with evidence of atherosclerotic calcification in the distal abdominal aorta and iliacs. 3. Rule out cervical radiculopathy. 4. Hyperlipidemia. RECOMMENDATIONS: Continue Lipitor at 20 mg once a day, Synthroid at 150 mcg once a day. Awaiting echocardiogram study and obtain x-ray of the cervical spines. Junior Ray MD
--- NOTE | 2017-07-26 13:54 | CP.PCM.PN ---
<Raoul Benitez - Last Filed: 07/26/17 21:16> Subjective - Date & Time of Evaluation Date of Evaluation: 07/26/17 Time of Evaluation: 13:54 - Subjective Subjective: Raoul Benitez DO, PGY-1, Hospitalist Service Patient seen and examined at bedside. Patient reports having pain that wraps around the lower back to the abdominal wall. Patient asked many questions about all her tests, all questions were answered satisfactorily with the daughter on speaker phone. Objective - Vital Signs/Intake and Output Vital Signs (last 24 hours): Temp Pulse Resp BP Pulse Ox 97.6 F 74 20 106/57 L 96 07/26/17 08:16 07/26/17 10:00 07/26/17 08:16 07/26/17 08:16 07/26/17 08:16 Intake and Output: 07/26/17 07/26/17 06:59 18:59 Intake Total 660 Balance 660 - Medications Medications: Current Medications Acetaminophen (Tylenol 325mg Tab) 650 mg PO Q6H PRN PRN Reason: Pain, moderate (4-7) Atorvastatin Calcium (Lipitor) 20 mg PO HS [facility] Last Admin: 07/25/17 21:49 Dose: 20 mg Diazepam (Valium) 2 mg PO HS PRN; Protocol PRN Reason: Insomnia Last Admin: 07/25/17 21:59 Dose: 2 mg Famotidine (Pepcid) 40 mg PO HS [facility] Last Admin: 07/25/17 21:49 Dose: 40 mg Levothyroxine Sodium (Synthroid) 75 mcg PO 0600 [facility] Mirtazapine (Remeron) 15 mg PO HS [facility] Last Admin: 07/25/17 21:49 Dose: 15 mg Oxycodone/Acetaminophen (Percocet 5/325 Mg Tab) 1 tab PO Q8H PRN PRN Reason: Pain, severe (8-10) Stop: 07/29/17 10:52 Last Admin: 07/26/17 12:27 Dose: 1 tab Pneumococcal Polyvalent Vaccine (Pneumovax 23 Vaccine) 0.5 ml IM .ONCE ONE Stop: 07/27/17 10:01 Tramadol HCl (Ultram) 50 mg PO TID PRN PRN Reason: Pain, severe (8-10) Last Admin: 07/26/17 10:48 Dose: 50 mg - Labs Labs: PT 10.7 Seconds (9.9-11.8) 07/24/17 15:30 INR 0.99 (0.93-1.08) 07/24/17 15:30 APTT 29.4 Seconds (23.7-30.8) 07/24/17 15:30 - Constitutional Appears: Well, Non-toxic, No Acute Distress - Head Exam Head Exam: ATRAUMATIC, NORMOCEPHALIC - Eye Exam Eye Exam: EOMI, Normal appearance, PERRL - ENT Exam ENT Exam: Mucous Membranes Moist, Normal Oropharynx - Neck Exam Neck Exam: Normal Inspection - Respiratory Exam Respiratory Exam: Clear to Ausculation Bilateral, NORMAL BREATHING PATTERN - Cardiovascular Exam Cardiovascular Exam: RRR, +S1, +S2 - GI/Abdominal Exam GI & Abdominal Exam: Soft, Normal Bowel Sounds. absent: Distended, Guarding, Rebound - Extremities Exam Extremities Exam: Normal Capillary Refill, Normal Inspection - Back Exam Back Exam: NORMAL INSPECTION. absent: CVA tenderness (L), CVA tenderness (R) - Neurological Exam Neurological Exam: Alert, Awake, CN II-XII Intact, Normal Gait, Oriented x3 Neuro motor strength exam: Left Upper Extremity: 5, Right Upper Extremity: 5, Left Lower Extremity: 5, Right Lower Extremity: 5 - Psychiatric Exam Psychiatric exam: Normal Affect, Normal Mood - Skin Skin Exam: Dry, Intact, Normal Color, Warm Assessment and Plan - Assessment and Plan (Free Text) Assessment: 62 year old y[place]i female with past medical history significant for a thoracic aortic aneurysm, magdalena's thryoiditis, and possible tachy-maureen arrythmia who presents following two syncopal episodes/falls. Plan: 1) Syncope - Cardiology consulted, Dr. Bautista - Carotid and vertebral artery duplex shows 20-39% proximal ICA stenosis and antegrade flow in both vertebral arteries. - TTE reads as mild to moderate aortic regurgitation and mildly enlarged aortic root. - CT head (-);MRI (-) for acute or subacute infarction. - CT angio showed TAA of 4.0 cm, no dissection - Neurology recommendations appreciated, EEG performed, read pending -LDL 131, TG 129, Cholesterol 197, HDL 43 2) Atherosclerosis - Lipitor 40 mg HS 3) Magdalena's thyroiditis - TSH 10.30, Free T4 0.71 - Levothyroxine increased to 75 mcg 4) Ophthalmology consulted, after discussing case with Dr. Hinkle, he was comfortable seeing patient on an outpatient basis 5) DVT/GI: SCD/Pepcid <Jerome Lu - Last Filed: 07/27/17 11:48> Objective - Vital Signs/Intake and Output Vital Signs (last 24 hours): Temp Pulse Resp BP Pulse Ox 97.7 F 55 L 20 110/57 L 97 07/27/17 00:01 07/27/17 02:00 07/27/17 00:01 07/27/17 00:01 07/27/17 00:01 Intake and Output: 07/27/17 07/27/17 06:59 18:59 Intake Total 100 Balance 100 - Medications Medications: Current Medications Acetaminophen (Tylenol 325mg Tab) 650 mg PO Q6H PRN PRN Reason: Pain, moderate (4-7) Atorvastatin Calcium (Lipitor) 20 mg PO HS [facility] Last Admin: 07/26/17 22:02 Dose: 20 mg Diazepam (Valium) 2 mg PO HS PRN; Protocol PRN Reason: Insomnia Last Admin: 07/25/17 21:59 Dose: 2 mg Famotidine (Pepcid) 40 mg PO HS [facility] Last Admin: 07/26/17 22:02 Dose: 40 mg Levothyroxine Sodium (Synthroid) 75 mcg PO 0600 [facility] Last Admin: 07/27/17 05:40 Dose: 75 mcg Mirtazapine (Remeron) 15 mg PO HS [facility] Last Admin: 07/26/17 22:02 Dose: 15 mg Tramadol HCl (Ultram) 50 mg PO TID PRN PRN Reason: Pain, severe (8-10) Last Admin: 07/26/17 10:48 Dose: 50 mg - Labs Labs: 07/27/17 06:00 07/27/17 06:00 PT 10.7 Seconds (9.9-11.8) 07/24/17 15:30 INR 0.99 (0.93-1.08) 07/24/17 15:30 APTT 29.4 Seconds (23.7-30.8) 07/24/17 15:30 Attending/Attestation - Attestation I have personally seen and examined this patient.: Yes I have fully participated in the care of the patient.: Yes I have reviewed all pertinent clinical information, including history, physical exam and plan: Yes Notes (Text): 07/26/17 62 year old female admitted with recurrent syncope. CT head and MRI brain are negative. Echocardiogram and EEG were done with pending read. Carotid doppler showed 20-39% proximal ICA stenosis. Cardiology and neurology are following. She is on aspirin and statin. She is on synthroid for history of Hashimto's. TSH is elevated and her synthroid is increased. She is pending PT evaluation. She will need outpatient ophthalmo evaluation and outpatient serial monitoring for history of TAA. Jerome Lu MD Hospitalist.
--- NOTE | 2017-07-26 17:22 | CARD ---
APPROVED REPORT EXAM: Two-dimensional and M-mode echocardiogram with Doppler and color Doppler. INDICATION Syncope 2D DIMENSIONS Left Atrium (2D)4.2 (1.6-4.0cm)IVSd0.9 (0.7-1.1cm) LVDd4.1 (3.9-5.9cm)PWd1.0 (0.7-1.1cm) LVDs2.9 (2.5-4.0cm)FS (%) 28.2 % LVEF (%)55.0 (>50%) M-Mode DIMENSIONS Aortic Root3.10 (2.2-3.7cm)Aortic Cusp Exc.1.90 (1.5-2.0cm) Aortic Valve AoV Peak Ybmchlgq425.0cm/Maribel Peak GR.12mmHgAI P 1/2 [id number] Mitral Valve MV E Xjlpwgfl61.1cm/sMV A Vqpqdckp61.6cm/sE/A ratio0.8 TDI Lateral E' Peak V9.85cm/sMedial E' Peak V6.24cm/sE/Lateral E'6.2 E/Medial E'9.8 Pulmonary Valve PV Peak Syztxnhb03.8cm/sPV Peak Grad.4mmHg Tricuspid Valve TR Peak Gsclfjny122nd/sRAP [id number] Peak Gr.21mmHg [id number] LEFT VENTRICLE The left ventricle is normal size. There is normal left ventricular wall thickness. The left ventricular function is normal. The left ventricular ejection fraction is within the normal range. There is normal LV segmental wall motion. Transmitral Doppler flow pattern is Grade I-abnormal relaxation pattern. RIGHT VENTRICLE The right ventricle is normal size. There is normal right ventricular wall thickness. The right ventricular systolic function is normal. ATRIA The left atrium is borderline dilated. The right atrium size is normal. AORTIC VALVE The aortic valve is mildly thickened. There is mild to moderate aortic regurgitation. There is no aortic valvular stenosis. MITRAL VALVE The mitral valve is mildly thickened. There is no mitral valve stenosis. TRICUSPID VALVE There is trace tricuspid regurgitation. GREAT VESSELS The aortic root is mildly enlarged. The IVC is normal in size and collapses >50% with inspiration. <Conclusion> The left ventricle is normal size. There is normal left ventricular wall thickness. The left ventricular function is normal. The left ventricular ejection fraction is within the normal range. There is normal LV segmental wall motion. Transmitral Doppler flow pattern is Grade I-abnormal relaxation pattern. There is mild to moderate aortic regurgitation. The aortic root is mildly enlarged.
--- NOTE | 2017-07-27 02:40 | EEG ---
DATE: INTRODUCTION: This is a digitally recorded EEG monitoring using standard EEG montages. BACKGROUND RHYTHM: The EEG shows a background activity of 9 Hz antelmo activity in parietooccipital region. The EEG activity is bilaterally symmetrical and synchronous. There is attenuation of the background activity on eye opening. No sleep recording was noted. Abnormal potentials. No spike, sharp waves or focal slowing was seen. Photic stimulation and hyperventilation: Photic stimulation did not reveal any abnormality. Hyperventilation was not performed. IMPRESSION: Normal electroencephalogram. No epileptiform activity is seen in this electroencephalogram recording. Laquita Carbone MD
[2017-07-27 07:03] LABS: BASO # 0.02 K/mm3 (0.0-2.0); BASO % 0.5 % (0.0-3.0); EOS # 0.1 (0.0-0.7); EOS % 3.6 % (1.5-5.0); GRAN # 1.9 (1.4-6.5); GRAN % 49.1 % (50.0-68.0); HEMATOCRIT 38.7 % (36.0-48.0); LYMPH # 1.5 (1.2-3.4); LYMPH % 38.5 % (22.0-35.0); MEAN CELL VOLUME 91.1 fl (80.0-105.0); MEAN CORPUSCULAR HEMOGLOBIN 31.3 pg (25.0-35.0); MEAN CORPUSCULAR HGB CONC 34.4 g/dl (31.0-37.0); MONO # 0.3 (0.1-0.6); MONO % 8.3 % (1.0-6.0); RED CELL DISTRIBUTION WIDTH 13.8 % (11.5-14.5); WHITE BLOOD COUNT 3.9 10^3/ul (4.5-11.0)
[2017-07-27 07:23] LABS: BLOOD UREA NITROGEN 15 mg/dL (7-21); CALCIUM 9.2 mg/dL (8.4-10.5); CARBON DIOXIDE 28 mmol/L (21-33); CHLORIDE 106 mmol/L (98-107); GFR AFRICAN-AMERICAN > 60; GLUCOSE,RANDOM 85 mg/dL (70-110); POTASSIUM 3.8 mmol/L (3.6-5.0); SODIUM 142 mmol/L (132-148)
[2017-07-27] MEDS ORDERED: Pneumococcal 23-Valent Vaccine IM ONE (10:00)
--- NOTE | 2017-07-27 13:58 | CP.PCM.DIS ---
<Raoul Benitez - Last Filed: 07/28/17 15:50> Provider - Provider Date of Admission: 07/25/17 15:26 Attending physician: Giacomo Chan MD Primary care physician: Edi Casey MD Consults: Dr. Flor Carbone Dr. Time Spent in preparation of Discharge (in minutes): 55 Diagnosis - Discharge Diagnosis (1) Magdalena's thyroiditis Status: Chronic Hospital Course - Lab Results Lab Results: Most Recent Lab Values WBC 3.9 10^3/ul (4.5-11.0) L 07/27/17 06:00 RBC 4.25 10^6/uL (3.5-6.1) 07/27/17 06:00 Hgb 13.3 g/dL (12.0-16.0) 07/27/17 06:00 Hct 38.7 % (36.0-48.0) 07/27/17 06:00 MCV 91.1 fl (80.0-105.0) 07/27/17 06:00 MCH 31.3 pg (25.0-35.0) 07/27/17 06:00 MCHC 34.4 g/dl (31.0-37.0) 07/27/17 06:00 RDW 13.8 % (11.5-14.5) 07/27/17 06:00 Plt Count 200 10^3/uL (120.0-450.0) 07/27/17 06:00 MPV 10.0 fl (7.0-11.0) 07/27/17 06:00 Gran % 49.1 % (50.0-68.0) L 07/27/17 06:00 Lymph % (Auto) 38.5 % (22.0-35.0) H 07/27/17 06:00 [place] % (Auto) 8.3 % (1.0-6.0) H 07/27/17 06:00 Eos % (Auto) 3.6 % (1.5-5.0) 07/27/17 06:00 Baso % (Auto) 0.5 % (0.0-3.0) 07/27/17 06:00 Gran # 1.90 (1.4-6.5) 07/27/17 06:00 Lymph # 1.5 (1.2-3.4) 07/27/17 06:00 [place] # 0.3 (0.1-0.6) 07/27/17 06:00 Eos # 0.1 (0.0-0.7) 07/27/17 06:00 Baso # 0.02 K/mm3 (0.0-2.0) 07/27/17 06:00 PT 10.7 Seconds (9.9-11.8) 07/24/17 15:30 INR 0.99 (0.93-1.08) 07/24/17 15:30 APTT 29.4 Seconds (23.7-30.8) 07/24/17 15:30 pO2 42 mm/Hg (30-55) 07/24/17 15:30 VBG pH 7.30 (7.32-7.43) L 07/24/17 15:30 VBG pCO2 59.0 (40-60) 07/24/17 15:30 VBG HCO3 29.0 mmol/l (21-28) H 07/24/17 15:30 VBG Total CO2 30.8 mmol.L (22-28) H 07/24/17 15:30 VBG O2 Sat (Calc) 84.2 % (40-65) H 07/24/17 15:30 VBG Base Excess 1.2 mmol/L (0.0-2.0) 07/24/17 15:30 VBG Potassium 4.0 mmol/L (3.6-5.2) 07/24/17 15:30 Sodium 140.0 mmol/L (132-148) 07/24/17 15:30 Chloride 107.0 mmol/L (98-107) 07/24/17 15:30 Glucose 82 mg/dl (65-105) 07/24/17 15:30 Lactate 1.2 mmol/L (0.7-2.1) 07/24/17 15:30 FiO2 21.0 % 07/24/17 15:30 Sodium 142 mmol/L (132-148) 07/27/17 06:00 Potassium 3.8 mmol/L (3.6-5.0) 07/27/17 06:00 Chloride 106 mmol/L (98-107) 07/27/17 06:00 Carbon Dioxide 28 mmol/L (21-33) 07/27/17 06:00 Anion Gap 12 (10-20) 07/27/17 06:00 BUN 15 mg/dL (7-21) 07/27/17 06:00 Creatinine 0.9 mg/dL (0.5-1.4) 07/27/17 06:00 Est GFR ( Amer) > 60 07/27/17 06:00 Est GFR (Non-Af Amer) > 60 07/27/17 06:00 Random Glucose 85 mg/dL (70-110) 07/27/17 06:00 Hemoglobin A1c 4.9 % (4.2-6.5) 07/25/17 16:14 Calcium 9.2 mg/dL (8.4-10.5) 07/27/17 06:00 Total Bilirubin 0.6 mg/dL (0.2-1.3) 07/24/17 15:30 AST 22 U/L (14-36) 07/24/17 15:30 ALT 22 U/L (7-56) 07/24/17 15:30 Alkaline Phosphatase 52 U/L (38-126) 07/24/17 15:30 Lactate Dehydrogenase 381 U/L (333-699) 07/25/17 16:14 Total Creatine Kinase 66 U/L (35-230) 07/25/17 16:14 Troponin I < 0.01 ng/mL 07/25/17 16:14 NT-Pro-B Natriuret Pep 81.5 pg/mL (0-450) 07/24/17 15:30 Total Protein 7.4 g/dL (5.8-8.3) 07/24/17 15:30 Albumin 4.2 g/dL (3.0-4.8) 07/24/17 15:30 Globulin 3.2 gm/dL 07/24/17 15:30 Albumin/Globulin Ratio 1.3 (1.1-1.8) 07/24/17 15:30 Triglycerides 129 mg/dL (35-160) 07/26/17 06:30 Cholesterol 197 mg/dL (130-200) 07/26/17 06:30 LDL Cholesterol Direct 131 mg/dL (0-129) H 07/26/17 06:30 HDL Cholesterol 43 mg/dL (29-60) 07/26/17 06:30 Free T4 0.71 ng/dL (0.78-2.19) L 07/26/17 06:30 TSH 3rd Generation 10.30 mIU/mL (0.46-4.68) H 07/25/17 16:14 Venous Blood Potassium 4.0 mmol/L (3.6-5.2) 07/24/17 15:30 Urine Color Yellow (YELLOW) 07/24/17 23:06 Urine Appearance Clear (CLEAR) 07/24/17 23:06 Urine pH 6.0 (4.7-8.0) 07/24/17 23:06 Ur Specific [place] >= 1.030 (1.005-1.035) 07/24/17 23:06 Urine Protein Trace mg/dL (<30 mg/dL) H 07/24/17 23:06 Urine Glucose (UA) Negative mg/dL (NEGATIVE) 07/24/17 23:06 Urine Ketones Negative mg/dL (NEGATIVE) 07/24/17 23:06 Urine Blood Negative (NEGATIVE) 07/24/17 23:06 Urine Nitrate Negative (NEGATIVE) 07/24/17 23:06 Urine Bilirubin Negative (NEGATIVE) 07/24/17 23:06 Urine Urobilinogen 0.2 E.U./dL (<1 E.U./dL) 07/24/17 23:06 Ur Leukocyte Esterase Negative Sylwia/uL (NEGATIVE) 07/24/17 23:06 Urine RBC 0 - 2 /hpf (0-2) 07/24/17 23:06 Urine WBC 0 - 2 /hpf (0-6) 07/24/17 23:06 Ur Epithelial Cells 1 - 3 /hpf (0-5) 07/24/17 23:06 Urine Opiates Screen Negative (NEGATIVE) 07/25/17 16:50 Urine Methadone Screen Negative (NEGATIVE) 07/25/17 16:50 Ur Barbiturates Screen Negative (NEGATIVE) 07/25/17 16:50 Ur Phencyclidine Scrn Negative (NEGATIVE) 07/25/17 16:50 Ur Amphetamines Screen Negative (NEGATIVE) 07/25/17 16:50 U Benzodiazepines Scrn Negative (NEGATIVE) 07/25/17 16:50 U Oth Cocaine Metabols Negative (NEGATIVE) 07/25/17 16:50 U Cannabinoids Screen Negative (NEGATIVE) 07/25/17 16:50 - Hospital Course Hospital Course: 62 year old uz[place] female with past medical history significant for a thoracic aortic aneurysm and magdalena's thryoiditis who presents following two syncopal episodes/falls. On admission she also c/o right visual field changes. Orthostatic blood pressure, CT/MRI of the head/brain, TTE, EEG, CT chest, and carotid doppler US were all negative. Patient was found to high elevated TSH of 10.7, bradycardia, and other symptoms related to low circulating thyroid levels. All speicalist consulkted agreed with this assesse,mt and the patient was discharged home with education on taking her Levothyroxine, re-checking her TSH in 6 weeks, and following up with her medical researcher, Dr. Hinkle, who was consulted for her visual changes, but after discussing the patient's symptoms, he thought it would be appropriate for the patient to come to his office upon discharge. The patient also was informed that she should be monitoring he TAA with 6 month intervals. The 4.0 cm measurement was discussed with the patient as well as her daughter (on speaker phone). All question were answered to the satisfaction of the daughter and mother. - Date & Time of H&P Date of H&P: 07/27/17 Time of H&P: 10:00 Discharge Exam - Head Exam Head Exam: ATRAUMATIC, NORMOCEPHALIC - Eye Exam Eye Exam: EOMI, Normal appearance, PERRL Pupil Exam: NORMAL ACCOMODATION - ENT Exam ENT Exam: Mucous Membranes Moist, Normal Oropharynx - Neck Exam Neck exam: Normal Inspection - Respiratory Exam Respiratory Exam: Clear to PA & Lateral, NORMAL BREATHING PATTERN - Cardiovascular Exam Cardiovascular Exam: RRR, +S1, +S2 - GI/Abdominal Exam GI & Abdominal Exam: Normal Bowel Sounds. absent: Guarding, Rebound, Rigid - Extremities Exam Extremities exam: normal capillary refill, pedal pulses present - Neurological Exam Neurological exam: Alert, CN II-XII Intact, Oriented x3 - Psychiatric Exam Psychiatric exam: Normal Affect, Normal Mood - Skin Skin Exam: Dry, Intact, Normal Color, Warm Discharge Plan - Discharge Medications Prescriptions: Levothyroxine [Synthroid] 75 mcg PO DAILY #30 tab traMADol [Ultram] 50 mg PO TID PRN 3 Days PRN Reason: Pain, Severe (8-10) - Follow Up Plan Condition: STABLE Disposition: HOME/ ROUTINE Instructions: Syncope (DC), Syncope (GEN) Additional Instructions: 1) Please follow-up with PMD, Dr. Edi Casey, within one week of discharge. 2) Continue taking all prescribed medications as directed. 3) Follow up TSH with PMD. 4) Continue taking Simvastatin as previously directed. 5) Please return to the ED if you have any new or worsening of symptoms. Referrals: Edi Casey MD [Primary Care Provider] - <Giacomo Chan MD - Last Filed: 07/28/17 17:26> Provider - Provider Date of Admission: 07/25/17 15:26 Attending physician: Giacomo Chan MD Primary care physician: Edi Casey MD Hospital Course - Lab Results Lab Results: Most Recent Lab Values WBC 3.9 10^3/ul (4.5-11.0) L 07/27/17 06:00 RBC 4.25 10^6/uL (3.5-6.1) 07/27/17 06:00 Hgb 13.3 g/dL (12.0-16.0) 07/27/17 06:00 Hct 38.7 % (36.0-48.0) 07/27/17 06:00 MCV 91.1 fl (80.0-105.0) 07/27/17 06:00 MCH 31.3 pg (25.0-35.0) 07/27/17 06:00 MCHC 34.4 g/dl (31.0-37.0) 07/27/17 06:00 RDW 13.8 % (11.5-14.5) 07/27/17 06:00 Plt Count 200 10^3/uL (120.0-450.0) 07/27/17 06:00 MPV 10.0 fl (7.0-11.0) 07/27/17 06:00 Gran % 49.1 % (50.0-68.0) L 07/27/17 06:00 Lymph % (Auto) 38.5 % (22.0-35.0) H 07/27/17 06:00 [place] % (Auto) 8.3 % (1.0-6.0) H 07/27/17 06:00 Eos % (Auto) 3.6 % (1.5-5.0) 07/27/17 06:00 Baso % (Auto) 0.5 % (0.0-3.0) 07/27/17 06:00 Gran # 1.90 (1.4-6.5) 07/27/17 06:00 Lymph # 1.5 (1.2-3.4) 07/27/17 06:00 [place] # 0.3 (0.1-0.6) 07/27/17 06:00 Eos # 0.1 (0.0-0.7) 07/27/17 06:00 Baso # 0.02 K/mm3 (0.0-2.0) 07/27/17 06:00 PT 10.7 Seconds (9.9-11.8) 07/24/17 15:30 INR 0.99 (0.93-1.08) 07/24/17 15:30 APTT 29.4 Seconds (23.7-30.8) 07/24/17 15:30 pO2 42 mm/Hg (30-55) 07/24/17 15:30 VBG pH 7.30 (7.32-7.43) L 07/24/17 15:30 VBG pCO2 59.0 (40-60) 07/24/17 15:30 VBG HCO3 29.0 mmol/l (21-28) H 07/24/17 15:30 VBG Total CO2 30.8 mmol.L (22-28) H 07/24/17 15:30 VBG O2 Sat (Calc) 84.2 % (40-65) H 07/24/17 15:30 VBG Base Excess 1.2 mmol/L (0.0-2.0) 07/24/17 15:30 VBG Potassium 4.0 mmol/L (3.6-5.2) 07/24/17 15:30 Sodium 140.0 mmol/L (132-148) 07/24/17 15:30 Chloride 107.0 mmol/L (98-107) 07/24/17 15:30 Glucose 82 mg/dl (65-105) 07/24/17 15:30 Lactate 1.2 mmol/L (0.7-2.1) 07/24/17 15:30 FiO2 21.0 % 07/24/17 15:30 Sodium 142 mmol/L (132-148) 07/27/17 06:00 Potassium 3.8 mmol/L (3.6-5.0) 07/27/17 06:00 Chloride 106 mmol/L (98-107) 07/27/17 06:00 Carbon Dioxide 28 mmol/L (21-33) 07/27/17 06:00 Anion Gap 12 (10-20) 07/27/17 06:00 BUN 15 mg/dL (7-21) 07/27/17 06:00 Creatinine 0.9 mg/dL (0.5-1.4) 07/27/17 06:00 Est GFR ( Amer) > 60 07/27/17 06:00 Est GFR (Non-Af Amer) > 60 07/27/17 06:00 Random Glucose 85 mg/dL (70-110) 07/27/17 06:00 Hemoglobin A1c 4.9 % (4.2-6.5) 07/25/17 16:14 Calcium 9.2 mg/dL (8.4-10.5) 07/27/17 06:00 Total Bilirubin 0.6 mg/dL (0.2-1.3) 07/24/17 15:30 AST 22 U/L (14-36) 07/24/17 15:30 ALT 22 U/L (7-56) 07/24/17 15:30 Alkaline Phosphatase 52 U/L (38-126) 07/24/17 15:30 Lactate Dehydrogenase 381 U/L (333-699) 07/25/17 16:14 Total Creatine Kinase 66 U/L (35-230) 07/25/17 16:14 Troponin I < 0.01 ng/mL 07/25/17 16:14 NT-Pro-B Natriuret Pep 81.5 pg/mL (0-450) 07/24/17 15:30 Total Protein 7.4 g/dL (5.8-8.3) 07/24/17 15:30 Albumin 4.2 g/dL (3.0-4.8) 07/24/17 15:30 Globulin 3.2 gm/dL 07/24/17 15:30 Albumin/Globulin Ratio 1.3 (1.1-1.8) 07/24/17 15:30 Triglycerides 129 mg/dL (35-160) 07/26/17 06:30 Cholesterol 197 mg/dL (130-200) 07/26/17 06:30 LDL Cholesterol Direct 131 mg/dL (0-129) H 07/26/17 06:30 HDL Cholesterol 43 mg/dL (29-60) 07/26/17 06:30 Free T4 0.71 ng/dL (0.78-2.19) L 07/26/17 06:30 TSH 3rd Generation 10.30 mIU/mL (0.46-4.68) H 07/25/17 16:14 Venous Blood Potassium 4.0 mmol/L (3.6-5.2) 07/24/17 15:30 Urine Color Yellow (YELLOW) 07/24/17 23:06 Urine Appearance Clear (CLEAR) 07/24/17 23:06 Urine pH 6.0 (4.7-8.0) 07/24/17 23:06 Ur Specific [place] >= 1.030 (1.005-1.035) 07/24/17 23:06 Urine Protein Trace mg/dL (<30 mg/dL) H 07/24/17 23:06 Urine Glucose (UA) Negative mg/dL (NEGATIVE) 07/24/17 23:06 Urine Ketones Negative mg/dL (NEGATIVE) 07/24/17 23:06 Urine Blood Negative (NEGATIVE) 07/24/17 23:06 Urine Nitrate Negative (NEGATIVE) 07/24/17 23:06 Urine Bilirubin Negative (NEGATIVE) 07/24/17 23:06 Urine Urobilinogen 0.2 E.U./dL (<1 E.U./dL) 07/24/17 23:06 Ur Leukocyte Esterase Negative Sylwia/uL (NEGATIVE) 07/24/17 23:06 Urine RBC 0 - 2 /hpf (0-2) 07/24/17 23:06 Urine WBC 0 - 2 /hpf (0-6) 07/24/17 23:06 Ur Epithelial Cells 1 - 3 /hpf (0-5) 07/24/17 23:06 Urine Opiates Screen Negative (NEGATIVE) 07/25/17 16:50 Urine Methadone Screen Negative (NEGATIVE) 07/25/17 16:50 Ur Barbiturates Screen Negative (NEGATIVE) 07/25/17 16:50 Ur Phencyclidine Scrn Negative (NEGATIVE) 07/25/17 16:50 Ur Amphetamines Screen Negative (NEGATIVE) 07/25/17 16:50 U Benzodiazepines Scrn Negative (NEGATIVE) 07/25/17 16:50 U Oth Cocaine Metabols Negative (NEGATIVE) 07/25/17 16:50 U Cannabinoids Screen Negative (NEGATIVE) 07/25/17 16:50 Attending/Attestation - Attestation I have personally seen and examined this patient.: Yes I have fully participated in the care of the patient.: Yes I have reviewed all pertinent clinical information, including history, physical exam and plan: Yes Notes (Text): 07/28/17 17:23 Patient was seen and examined with medical technical writer. 62 year old female admitted with fall/ syncope? CT head and MRI brain were negative for acute finding.Tele was unremarkable for any arrhythmia. Echo showed normal systolic function.Patient is ambulatory.She is non compliance with her thyroid medication.This was discussed in detail with her.Patient case was discussed with cardiology.She will be discharged home and will follow up with PCP . Management plan was discussed in detail with patient Education was provided.
[2017-07-27 17:13] VITALS: BP 123/79; PULSE 68; TEMP 98.4; O2SAT 96
--- NOTE | 2017-07-30 15:07 | PN ---
SUBJECTIVE: The patient denies any dizziness. No reported arrhythmia. PHYSICAL EXAMINATION: VITAL SIGNS: Blood pressure 110/57, heart rate 55, temperature 97.7, respirations 20. HEENT: Normocephalic. CHEST: Clear. HEART: S1 and S2 regular. EXTREMITIES: No edema. LABORATORY DATA: White count 3.9. Hemoglobin, hematocrit, and platelet count are within normal limits. Today's SMA-7 is within normal limits. Echocardiograph study revealed normal left ventricle size, wall thickness, and ejection fraction with grade 1 abnormal relaxation pattern, [id number] aortic insufficiency with mildly dilated aortic root. ASSESSMENT: 1. Status post fall, very unlikely syncope as the patient did not experience either dizziness or fainting. 2. Rtod-qj-evfpuxav aortic insufficiency with dilated aortic root. 3. Hypothyroidism, which is adequately replaced. RECOMMENDATIONS: I did review the cervical spine x-ray, which I ordered yesterday and had no abnormal findings. Case was discussed with . . Optimize thyroid replacement. Continue Lipitor at 20 mg once a day. Follow up echo and chest CT in 2 years is justified. Junior Ray MD
== END 2017-07-27 17:55 | disposition home or self-care (01) | DRG 300 ==
LOC: ED 13:40 → ERH 20:05 → 3RNO 23:07 → OBSVTOIN 07-25 15:26
PROVIDERS: ADMIT Internal Medicine; ATTEND Internal Medicine
DX: E06.3 Autoimmune thyroiditis (principal); I71.2 Thoracic aortic aneurysm, without rupture; J44.9 Chronic obstructive pulmonary disease, unspecified; I65.23 Occlusion and stenosis of bilateral carotid arteries; G62.9 Polyneuropathy, unspecified; H43.811 Vitreous degeneration, right eye; I10 Essential (primary) hypertension; E78.5 Hyperlipidemia, unspecified; M54.9 Dorsalgia, unspecified; R29.6 Repeated falls; R00.1 Bradycardia, unspecified; F41.0 Panic disorder [episodic paroxysmal anxiety]; Z91.14 Patient's other noncompliance with medication regimen; Z91.81 History of falling; Z87.891 Personal history of nicotine dependence; Z90.710 Acquired absence of both cervix and uterus

== ENCOUNTER 2019-01-22 10:22 | Outpatient (CLI) | payer MEDICARE, OTHER | END 2019-01-22 10:23 | disposition home or self-care (01) | LOC: RAD 10:22 ==

== ENCOUNTER 2019-02-05 06:06 | Emergency (ER) | payer MEDICARE, OTHER ==
[2019-02-05 06:14] VITALS: BMI 35.4
[2019-02-05 06:22] VITALS: TEMP 97.6
--- NOTE | 2019-02-05 07:19 | ED PDOC ---
Arrival/HPI - General Historian: Patient - History of Present Illness Narrative History of Present Illness (Text): 02/05/19 07:16 This is a 62-year-old F with PMH peripheral neuropathy, ascending aortic aneursym, magdalena's thryoiditis, tachy maureen arrhythmia who presents to [facility] emergency department for L lower extremity pain x1 month. Patient says the pain is worse with walking and rates it as 10/10 at its worst. Patient says the pain radiates down from her knee to her medial malleolus. Patient describes the pain as "nerve pain," and she also says that sometimes it feels crampy. Patient otherwise denies chest pain, shortness of breath, headache, abdominal pain, back pain, numbness/tingling in lower extremities, ulcers, fever, and/or chills. Time/Duration: > month Symptom Course: Unchanged Severity Level: 10 Context: Walking <Jd Preciado - Last Filed: 02/05/19 08:54> <Alva Wan - Last Filed: 02/05/19 17:43> - General Chief Complaint: Lower Extremity Problem/Injury Time Seen by Provider: 02/05/19 07:13 Past Medical History - Provider Review Nursing Documentation Reviewed: Yes - Infectious Disease Hx of Infectious Diseases: None - Tetanus Immunization Tetanus Immunization: Unknown - Cardiac Hx Pacemaker: No - Pulmonary Hx Respiratory Disorders: Yes Hx Chronic Obstructive Pulmonary Disease (COPD): Yes Hx Emphysema: Yes - Neurological Hx Neurological Disorder: No - HEENT Hx HEENT Disorder: No - Renal Hx Renal Disorder: No - Endocrine/Metabolic Hx Endocrine Disorders: Yes Hx Hypothyroidism: Yes Other/Comment: magdalena disease no longer on meds - Hematological/Oncological Hx Blood Transfusions: No - Integumentary Hx Dermatological Disorder: No - Musculoskeletal/Rheumatological Hx Musculoskeletal Disorders: Yes - Gastrointestinal Hx Gastrointestinal Disorders: Yes (RECTAL BLEED) - Genitourinary/Gynecological Hx Genitourinary Disorders: No - Psychiatric Hx Emotional Abuse: No Hx Physical Abuse: No Hx Substance Use: No - Surgical History Hx Hysterectomy: Yes Other/Comment: anal fistula repair - Anesthesia Hx Anesthesia: No Hx Anesthesia Reactions: No Hx Malignant Hyperthermia: No - Suicidal Assessment Feels Threatened In Home Enviroment: No <Jd Preciado - Last Filed: 02/05/19 08:54> Family/Social History - Physician Review Nursing Documentation Reviewed: Yes Family/Social History: No Known Family HX Smoking Status: Former Smoker Hx Alcohol Use: No Hx Substance Use: No Hx Substance Use Treatment: No <Jd Preciado - Last Filed: 02/05/19 08:54> Allergies/Home Meds <Jd Preciado - Last Filed: 02/05/19 08:54> <SocoAlva Kenyn - Last Filed: 02/05/19 17:43> Allergies/Adverse Reactions: Allergies ciprofloxacin [From Cipro] Allergy (Verified 07/24/17 13:55) SWELLING ciprofloxacin HCl [From Cipro] Allergy (Verified 07/24/17 13:55) SWELLING Home Medications: Home Meds Medication Instructions Recorded Confirmed Celecoxib [Celebrex] 200 mg PO BID 07/29/18 02/05/19 Metoprolol Tartrate [Lopressor] 50 mg PO BID 07/29/18 02/05/19 Simvastatin [Zocor] 40 mg PO HS 07/29/18 02/05/19 Levothyroxine [Synthroid] 50 mcg PO DAILY 02/05/19 02/05/19 Review of Systems - Review of Systems Constitutional: absent: Fatigue, Weight Change, Fevers Eyes: absent: Vision Changes ENT: absent: Voice Changes, Sore Throat Respiratory: absent: SOB, Cough Cardiovascular: Calf Pain. absent: Chest Pain, Palpitations, Syncope Gastrointestinal: absent: Abdominal Pain, Nausea, Vomiting Genitourinary Female: absent: Dysuria Musculoskeletal: Joint Swelling (knees bilaterally). absent: Arthralgias, Back Pain, Neck Pain Skin: Normal Neurological: Normal Hemo/Lymphatic: Normal Psychiatric: Normal <Jd Preciado - Last Filed: 02/05/19 08:54> Physical Exam Vital Signs Temp Pulse Resp BP Pulse Ox 02/05/19 06:21 97.6 F 61 20 107/72 95 Temperature: Afebrile Blood Pressure: Normal Pulse: Regular Respiratory Rate: Normal Appearance: Positive for: Non-Toxic, Uncomfortable Pain Distress: Severe Mental Status: Positive for: Alert and Oriented X 3 - Systems Exam Head: Present: Atraumatic, Normocephalic Pupils: Present: PERRL Extroacular Muscles: Present: EOMI Conjunctiva: Present: Normal Mouth: Present: Moist Mucous Membranes Neck: Present: Normal Range of Motion Respiratory/Chest: Present: Good Air Exchange. No: Respiratory Distress, Accessory Muscle Use Cardiovascular: Present: Regular Rate and Rhythm Abdomen: No: Tenderness, Distention, Peritoneal Signs Upper Extremity: Present: Normal Inspection. No: Cyanosis, Edema Lower Extremity: Present: Normal Inspection, CALF TENDERNESS (right), NORMAL PULSES, Tenderness, Neurovascularly Intact Neurological: Present: GCS=15, CN II-XII Intact, Speech Normal Skin: Present: Warm, Dry, Normal Color. No: Rashes Psychiatric: Present: Alert, Oriented x 3, Normal Insight, Normal Concentration <Jd Preciado - Last Filed: 02/05/19 08:54> Vital Signs Reviewed: Yes Vital Signs Temp Pulse Resp BP Pulse Ox 02/05/19 08:07 50 L 16 105/58 L 99 02/05/19 06:21 97.6 F 61 20 107/72 95 <Alva Wan - Last Filed: 02/05/19 17:43> Medical Decision Making ED Course and Treatment: 02/05/19 07:22 This is a 62-year-old F with PMH peripheral neuropathy, ascending aortic aneursym, magdalena's thryoiditis, tachy maureen arrhythmia who presents to [facility] emergency department for L lower extremity pain x1 month. PLAN: - Toradol 15mg IVP x1 dose - Bilateral LE venous doppler - RAD Interpretation Radiology Orders: 02/05/19 07:14 DUPLEX LOWER EXTRM VEIN BILAT [US] Stat - Medication Orders Current Medication Orders: Ketorolac Tromethamine (Toradol) 15 mg IM STAT STA Stop: 02/05/19 07:16 <Jd Preciado - Last Filed: 02/05/19 08:54> ED Course and Treatment: 02/05/19 08:39 Patient Seen with Resident: In agreement with resident note which contains more details about the patient. Patient seen and evaluated with resident. Came up with plan and treatment together. Impression: 64 year old female who presents to the emergency department co mplaining of left lower extremity pain. Venous duplex negative for DVT. - RAD Interpretation Radiology Orders: 02/05/19 07:14 DUPLEX LOWER EXTRM VEIN BILAT [US] Stat - Medication Orders Current Medication Orders: Discontinued Medications Ketorolac Tromethamine (Toradol) 15 mg IM STAT STA Stop: 02/05/19 07:16 Last Admin: 02/05/19 07:20 Dose: 15 mg MAR Pain Assessment Document 02/05/19 07:20 CD (Rec: 02/05/19 07:22 CD [id number]) Pain Reassessment Is this a pain reassessment? No Sleep Is patient sleeping during reassessment? No Presence of Pain Presence of Pain Yes Pain Scale Used Protocol: PSCALES Pain Scale Used Numeric Location Left, Right or Bilateral Left Pain Location Body Site Leg Description Intensity of Pain at present 10 IM Administration Charges Document 02/05/19 07:20 CD (Rec: 02/05/19 07:22 CD [facility] [id number]) Charges for Administration # of IM Administrations 1 <Alva Wan - Last Filed: 02/05/19 17:43> - Scribe Statement The provider has reviewed the documentation as recorded by the Neilibcici Lind Provider Scribe Attestation: All medical record entries made by the Scribe were at my direction and p ersonally dictated by me. I have reviewed the chart and agree that the record accurately reflects my personal performance of the history, physical exam, medical decision making, and the department course for this patient. I have also personally directed, reviewed, and agree with the discharge instructions and disposition. <Alva Wan - Last Filed: 02/05/19 17:43> Disposition/Present on Arrival - Present on Arrival Any Indicators Present on Arrival: No History of DVT/PE: No History of Uncontrolled Diabetes: No Urinary Catheter: No History of Decub. Ulcer: No History Surgical Site Infection Following: None - Disposition Have Diagnosis and Disposition been Completed?: Yes Disposition Time: 08:55 Patient Plan: Discharge <Jd Preciado - Last Filed: 02/05/19 08:54> <Alva Wan - Last Filed: 02/05/19 17:43> - Disposition Diagnosis: PAD (peripheral artery disease) Disposition: HOME/ ROUTINE Condition: GOOD Discharge Instructions (ExitCare): Peripheral Vascular (Arterial) Disease (DC) Additional Instructions: Follow-up with your primary care physician within 3-5 day of discharge If your symptoms worsen or do not improve, go to your nearest emergency department immediately Referrals: Kaiden Crowe MD [Primary Care Provider] - Follow up with primary Forms: Swivl (Yi)
[2019-02-05 08:11] VITALS: O2SAT 99
[2019-02-05 09:06] VITALS: BP 106/61; PULSE 58; RESP 18
--- NOTE | 2019-02-05 12:06 | US ---
HISTORY: Leg pain and swelling. Evaluate for DVT PHYSICIAN(S): Yordy Lind MD. TECHNIQUE: Duplex sonography and color-flow Doppler with graded compression were used to evaluate the deep venous systems of both lower extremities. FINDINGS: The visualized deep venous systems of both lower extremities are sonographically normal and compressible. Normal wave forms and augmentation are seen. There is no sonographic evidence for deep venous thrombosis in the visualized segments of both lower extremities. There is a 2.4 x 5.1 cm fluid collection in the left popliteal fossa, consistent with a Mantilla cyst. IMPRESSION: No sonographic evidence for deep venous thrombosis in the visualized segments of both lower extremities.
== END 2019-02-05 09:08 | disposition home or self-care (01) ==
LOC: ED 06:06
DX: I73.9 Peripheral vascular disease, unspecified (principal)
CPT/HCPCS: 93970; 96372; 99284; J1885